=== PATIENT | male | born 1955 | race Caucasian/White ===

== ENCOUNTER → 2017-01-11 | Outpatient (REF) ==
--- NOTE | 2017-01-11 17:13 | REP ---
HISTORY: Disability determination. COMPARISON: None. It appears as though the patient has undergone distal clavicular excision due to a wide AC joint. I have no surgical history. At any rate, the AC joint is not abnormally or asymmetrically narrowed. Small osteophytes are seen arising from the end of the acromion process. The glenohumeral relationship is within normal limits. There is no acute fracture or dislocation. IMPRESSION: Suspected postoperative changes as described above. Signed by Yusef Arce DO 01/11/2017 05:46 P
== END ==
LOC: M SMT 14:41
PROVIDERS: ATTEND Internal Medicine
DX: M51.36 Other intervertebral disc degeneration, lumbar region (principal)